=== PATIENT | female | born 1950 | race Caucasian/White ===

== ENCOUNTER 2016-11-07 13:41 | Emergency (ER) | payer OTHER, BC ==
[~2016-11-07] VITALS: Ht 157.5 cm; Wt 79.4 kg
[2016-11-07] MEDS ORDERED: LIPITOR 20 MG T20 M1 PO (16:30)
[2016-11-07] MEDS ORDERED: LOSARTAN-HCTZ1 EAC3 PO (16:32)
[2016-11-07] MEDS ORDERED: HYDROCODONE-AP1 EAC6 PO (17:34)
[2016-11-07 18:13] VITALS: BP 141/85
== END 2016-11-07 18:14 | disposition home or self-care (01) ==
LOC: ER 13:41
DX: S01.111A Laceration without foreign body of right eyelid and periocular area, initial encounter (principal); S63.592A Other specified sprain of left wrist, initial encounter; H11.31 Conjunctival hemorrhage, right eye; I10 Essential (primary) hypertension; E78.00 Pure hypercholesterolemia, unspecified; Z88.0 Allergy status to penicillin; W10.8XXA Fall (on) (from) other stairs and steps, initial encounter; Y93.89 Activity, other specified; Y92.89 Other specified places as the place of occurrence of the external cause; Y99.8 Other external cause status